=== PATIENT | female | born 1980 | race African-American/Black ===

== ENCOUNTER 2018-01-01 10:04 | Emergency (ER) | payer SELFPAY ==
[~2018-01-01] VITALS: Ht 157.5 cm; Wt 62.6 kg
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
[2018-01-01 11:59] VITALS: BP 107/77
[2018-01-01] MEDS ORDERED: NAPROXEN 500 MG TABLET PO ONE (12:00)
== END 2018-01-01 11:59 | disposition home or self-care (01) ==
LOC: ER 10:04
DX: S00.83XA Contusion of other part of head, initial encounter (principal); V49.9XXA Car occupant (driver) (passenger) injured in unspecified traffic accident, initial encounter; Y93.89 Activity, other specified; Y99.8 Other external cause status; Y92.488 Other paved roadways as the place of occurrence of the external cause
CPT/HCPCS: 70450; 81025; 99284-25